=== PATIENT | male | born 1945 | race Caucasian/White ===

== ENCOUNTER → 2016-09-28 | Outpatient (CLI) | payer MEDICARE, OTHER ==
[~2016-09-28] MED LIST: ACET1TAB12 PO; ALBU2.5V7 AEROSOL; ALBU8.5H INH; AMPH30CA PO; ASPI-558 PO; CHOL200014 PO; FLUT16SP12 EA NOSTRIL; FLUT1DIS3 ORAL INH; LEVO50TA11 PO; LORA0.5T86 PO; METH500T PO; METO-275 PO; MONT10TA22 PO; MULT-543 PO; OMEG500C7 PO; ONDA4TAB4 PO; PANT40TA27 PO; ROSU5TAB PO; TADA5TAB PO
--- NOTE | 2016-09-29 08:38 | DI ---
Indication: ITS.REASON: R41.0 DISORIENTATION, R41.3 CONFUSION PROCEDURE: MRI BRAIN W/O CONTRAST: Encounter: Initial Comparisons: Brain MRI dated December 01, 2014 Technique: Multiplanar, multisequence, MR imaging of the head without contrast was acquired. FINDINGS: The ventricles are of normal size, shape, and contour for the patient's age. There are small nonspecific punctate areas of T2-weighted and T2 FLAIR weighted signal abnormality in the deep frontoparietal white matter that most likely represent small vessel ischemic disease. This is of a degree that is considered to be normal for the patient's age. The brain stem, cerebellum, and cerebral hemispheres otherwise have a normal morphologic appearance as well as MR signal intensity on all pulse sequences. There are no areas of restricted diffusion on diffusion weighted imaging to suggest an acute infarct. There is no evidence of an intracranial mass lesion, intracranial hemorrhage, or hydrocephalus. The visualized portions of the orbits, calvarium, paranasal sinuses, and skull base demonstrate no significant abnormality. IMPRESSION: Unremarkable MRI of the head for the patient's age without contrast. Stable exam. .
== END ==
LOC: IMA 19:01
PROVIDERS: ATTEND Family Medicine
DX: R41.0 Disorientation, unspecified (principal); R41.3 Other amnesia